=== PATIENT | female | born 1990 | race Caucasian/White ===

== ENCOUNTER 2021-03-05 02:59 | Emergency (ER) | payer MEDICAID ==
[~2021-03-05] VITALS: Ht 167.7 cm; Wt 86.2 kg
[2021-03-05 03:10] VITALS: BP 123/74
[2021-03-05] MEDS ORDERED: ONDANSETRON 4 MG (ZOFRAN) ORAL DISSOLVE TAB PO STA (03:16)
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
[2021-03-05] MEDS ORDERED: ACETAMINOPHEN 500 MG TAB (TYLENOL) PO ONE (03:30)
[2021-03-05 03:35] LABS: BILIRUBIN,URINE NEGATIVE (NEGATIVE); CLARITY,URINE CLEAR; COLOR,URINE YELLOW; GLUCOSE, URINE (UA) NEGATIVE (NEGATIVE); KETONES,URINE NEGATIVE (NEGATIVE); LEUKOCYTE ESTERASE ,URINE 1+ (NEGATIVE); NITRITE,URINE NEGATIVE (NEGATIVE); PROTEIN,URINE NEGATIVE (NEGATIVE)
[2021-03-05 03:51] LABS: BACTERIA,URINE LARGE /HPF; RBC,URINE 0-2 /HPF; WBC,URINE 25-50 /HPF
[2021-03-05] MEDS ORDERED: CEPH500T PO (03:56)
== END 2021-03-05 04:09 | disposition home or self-care (01) ==
LOC: ER 03:06
DX: O23.42 Unspecified infection of urinary tract in pregnancy, second trimester (principal); R10.30 Lower abdominal pain, unspecified; Z3A.16 16 weeks gestation of pregnancy
CPT/HCPCS: 81000; 87088; 99283

== ENCOUNTER 2021-04-08 21:39 | Outpatient (CLI) | payer MEDICAID ==
[~2021-04-08] VITALS: Ht 167.7 cm; Wt 92.7 kg
[~2021-04-08 21:39] MED LIST: CEPH500T PO
[2021-04-08 22:05] VITALS: BP 117/63
[2021-04-08 22:08] VITALS: BP 117/63
[2021-04-08 22:09] VITALS: BP 117/63
[2021-04-08 22:39] LABS: BILIRUBIN,URINE NEGATIVE (NEGATIVE); CLARITY,URINE CLEAR; COLOR,URINE YELLOW; GLUCOSE, URINE (UA) NEGATIVE (NEGATIVE); KETONES,URINE NEGATIVE (NEGATIVE); LEUKOCYTE ESTERASE ,URINE TRACE (NEGATIVE); NITRITE,URINE NEGATIVE (NEGATIVE); PROTEIN,URINE NEGATIVE (NEGATIVE)
[2021-04-08 22:49] LABS: BACTERIA,URINE TRACE /HPF; WBC,URINE RARE /HPF
[2021-04-08] MEDS ORDERED: fluCOnazole (DIFLUCAN) 100 MG TAB PO ONE (23:00)
[2021-04-08] MEDS ORDERED: TERC80SU4 VG (23:08)
[2021-04-08 23:16] VITALS: BP 117/63
--- NOTE | 2021-04-09 07:53 | Physician Query-Final Dx ---
MARIANO DICKERSON 04/09/21 0753: Clinic Account Progress/Dx Physician Query: Please give diagnosis Please include # weeks gestation Date of Service Apr 08, 2021 at 21:39 JAIRO NARANJO DO 04/10/21 1510: Clinic Account Progress/Dx DIAGNOSIS: Diagnosis 25 week gestation pelvic cramping MARIANO DICKERSON Apr 09, 2021 07:53 JAIRO NARANJO DO Apr 10, 2021 15:10
== END 2021-04-08 23:16 | disposition home or self-care (01) ==
LOC: WSo 21:39 → LDRP 21:48 → WSo 23:16
PROVIDERS: ATTEND Obstetrics & Gynecology
DX: O36.8120 Decreased fetal movements, second trimester, not applicable or unspecified (principal); Z3A.26 26 weeks gestation of pregnancy
CPT/HCPCS: 81000; G0463; 99213